=== PATIENT | female | born 1970 | race Caucasian/White ===

== ENCOUNTER 2020-12-08 09:49 | Emergency (ER) | payer BC ==
--- NOTE | 2020-12-08 10:05 | EDM.PDOC ---
"ED HPI GENERAL MEDICAL PROBLEM - General Chief Complaint: Abdominal Pain Stated Complaint: PAIN Time Seen by Provider: 12/08/20 10:05 Source of Information: Reports: Patient, RN, RN Notes Reviewed History Limitations: Reports: No Limitations - History of Present Illness INITIAL COMMENTS - FREE TEXT/NARRATIVE: Pt presents to ER from home by POV with c/o onset of right sided abdominal pain at 0100HRS this morning. Pt reports having sweats with chills, right flank pain, feeling abdominal distention, urinary frequency with one episode of urinary incontinence. Pt admits to chronic diarrhea for many years. Denies constipation. She states she had a negative COVID test at work this morning. Onset: Today, Gradual Onset Date: 12/08/20 Onset Time: 01:00 Duration: Constant Location: Reports: Abdomen - Related Data Allergies Allergy/AdvReac Type Severity Reaction Status Date / Time No Known Allergies Allergy Verified 12/08/20 10:35 Home Meds: Home Meds FLUoxetine [PROzac] 20 mg PO DAILY 11/30/15 [History] Meclizine [Antivert] 25 mg PO DAILY 11/30/15 [History] methocarbamoL [Methocarbamol] 500 - 1,000 mg PO Q8HR PRN 11/30/15 [History] DULoxetine HCl [Cymbalta] 60 mg PO DAILY 12/08/20 [History] Past Medical History Musculoskeletal History: Reports: Neck Pain, Chronic Endocrine/Metabolic History: Reports: Obesity/BMI 30+ Social & Family History - Family History Family Medical History: No Pertinent Family History - Living Situation & Occupation Living situation: Reports: with Family Occupation: Employed ED ROS GENERAL - Review of Systems Review Of Systems: Comprehensive ROS is negative, except as noted in HPI. ED EXAM, GI/ABD - Physical Exam Exam: See Below Exam Limited By: No Limitations General Appearance: Alert, WD/WN, Obese, Other (Uncomfortable but non-toxic appearing) Eyes: Bilateral: Normal Appearance Nose: Normal Inspection Throat/Mouth: Normal Inspection, Normal Voice, No Airway Compromise Head: Atraumatic, Normocephalic Neck: Normal Inspection Respiratory/Chest: No Respiratory Distress, Lungs Clear, Normal Breath Sounds, No Accessory Muscle Use, Chest Non-Tender Cardiovascular: Regular Rate, Rhythm GI/Abdominal Exam: Normal Bowel Sounds, Soft, Non-Tender, No Distention, Other (Obese abdomen, with tenderness not reproduced by palpation). No: Guarding, Rigid, Rebound Back Exam: Full Range of Motion, CVA Tenderness (R). No: CVA Tenderness (L), Vertebral Tenderness Neurological: Alert, Oriented, No Motor/Sensory Deficits Psychiatric: Normal Mood Skin Exam: Warm, Dry, Intact, Normal Color, No Rash Course - Vital Signs Last Recorded V/S: Last Vital Signs Temp 98.1 F 12/08/20 10:37 Pulse 74 12/08/20 10:37 Resp 20 12/08/20 10:37 BP 142/63 H 12/08/20 10:37 Pulse Ox 100 12/08/20 10:37 - Orders/Labs/Meds Orders: Active Orders 24 hr Category Date Time Status Peripheral IV Care [RC] . DIRECTED Care 12/08/20 10:10 Active CULTURE BLOOD [BC] Stat Lab 12/08/20 10:30 Received CULTURE BLOOD [BC] Stat Lab 12/08/20 10:32 Received Sodium Chloride 0.9% [Saline Flush] Med 12/08/20 10:09 Active 10 ml FLUSH ASDIRECTED PRN Blood Culture x2 Reflex Set [OM.PC] Stat Oth 12/08/20 10:11 Ordered Peripheral IV Insertion Adult [OM.PC] Stat Oth 12/08/20 10:10 Ordered Medication Orders Sodium Chloride (Saline Flush) 10 ml FLUSH ASDIRECTED PRN PRN Reason: Keep Vein Open Last Admin: 12/08/20 10:45 Dose: 10 ml Documented by: [email or web address] Labs: Laboratory Tests 12/08/20 12/08/20 12/08/20 Range/Units 10:00 10:30 10:30 WBC 9.0 (5.0-10.0) 10^3/uL RBC 4.58 (4.2-5.4) 10^6/uL Hgb 13.7 (12.0-16.0) g/dL Hct 41.8 (37.0-47.0) % MCV 91.3 (80-100) fL MCH 29.9 (27.0-34.0) pg MCHC 32.8 L (33.0-35.0) g/dL Plt Count 246 (150-450) 10^3/uL Neut % (Auto) 73.3 (42.2-75.2) % Lymph % (Auto) 19.3 L (20.5-50.1) % [place] % (Auto) 6.1 (2-8) % Eos % (Auto) 0.7 L (1.0-3.0) % Baso % (Auto) 0.6 (0.0-1.0) % Sodium 141 (136-145) mmol/L Potassium 4.0 (3.5-5.1) mmol/L Chloride 104 (98-107) mmol/L Carbon Dioxide 28 (21-32) mmol/L Anion Gap 13.0 (7-13) mEq/L BUN 15 (7-18) mg/dL Creatinine 0.83 (0.55-1.02) mg/dL Est Cr Clr Drug Dosing 76.75 mL/min Estimated GFR (MDRD) > 60 BUN/Creatinine Ratio 18.1 (No establ ref range) Glucose 150 H (74-99) mg/dL Lactic Acid (0.4-2.0) mmol/L Calcium 9.3 (8.5-10.1) mg/dL Total Bilirubin 0.3 (0.2-1.0) mg/dL AST 16 (15-37) U/L ALT 32 (14-59) U/L Alkaline Phosphatase 106 (46-116) U/L Total Protein 7.6 (6.4-8.2) g/dL Albumin 4.0 (3.4-5.0) g/dL Globulin 3.6 Albumin/Globulin Ratio 1.1 Amylase 34 (25-115) U/L Lipase 65 L (73-393) U/L Urine Color Yellow (YELLOW) Urine Appearance Slightly cloudy (CLEAR) Urine pH 5.0 (5.0-9.0) Ur Specific [place] >= 1.030 (1.005-1.030) Urine Protein Trace H (NEGATIVE) Urine Glucose (UA) Negative (NEGATIVE) Urine Ketones 15 H (NEGATIVE) Urine Occult Blood Moderate H (NEGATIVE) Urine Nitrite Negative (NEGATIVE) Urine Bilirubin Negative (NEGATIVE) Urine Urobilinogen 0.2 (0.2-1.0) mg/dL Ur Leukocyte Esterase Negative (NEGATIVE) Urine RBC 5-10 H /HPF Urine WBC 5-10 H (0-5/HPF) /HPF Ur Epithelial Cells Many H (NOT SEEN) /HPF Urine Bacteria Many H (0-FEW/HPF) /HPF 12/08/20 Range/Units 10:30 WBC (5.0-10.0) 10^3/uL RBC (4.2-5.4) 10^6/uL Hgb (12.0-16.0) g/dL Hct (37.0-47.0) % MCV (80-100) fL MCH (27.0-34.0) pg MCHC (33.0-35.0) g/dL Plt Count (150-450) 10^3/uL Neut % (Auto) (42.2-75.2) % Lymph % (Auto) (20.5-50.1) % [place] % (Auto) (2-8) % Eos % (Auto) (1.0-3.0) % Baso % (Auto) (0.0-1.0) % Sodium (136-145) mmol/L Potassium (3.5-5.1) mmol/L Chloride (98-107) mmol/L Carbon Dioxide (21-32) mmol/L Anion Gap (7-13) mEq/L BUN (7-18) mg/dL Creatinine (0.55-1.02) mg/dL Est Cr Clr Drug Dosing mL/min Estimated GFR (MDRD) BUN/Creatinine Ratio (No establ ref range) Glucose (74-99) mg/dL Lactic Acid 1.3 (0.4-2.0) mmol/L Calcium (8.5-10.1) mg/dL Total Bilirubin (0.2-1.0) mg/dL AST (15-37) U/L ALT (14-59) U/L Alkaline Phosphatase (46-116) U/L Total Protein (6.4-8.2) g/dL Albumin (3.4-5.0) g/dL Globulin Albumin/Globulin Ratio Amylase (25-115) U/L Lipase (73-393) U/L Urine Color (YELLOW) Urine Appearance (CLEAR) Urine pH (5.0-9.0) Ur Specific [place] (1.005-1.030) Urine Protein (NEGATIVE) Urine Glucose (UA) (NEGATIVE) Urine Ketones (NEGATIVE) Urine Occult Blood (NEGATIVE) Urine Nitrite (NEGATIVE) Urine Bilirubin (NEGATIVE) Urine Urobilinogen (0.2-1.0) mg/dL Ur Leukocyte Esterase (NEGATIVE) Urine RBC /HPF Urine WBC (0-5/HPF) /HPF Ur Epithelial Cells (NOT SEEN) /HPF Urine Bacteria (0-FEW/HPF) /HPF Meds: Medications Generic Name Dose Route Start Last Admin Trade Name Ubaldo PRN Reason Stop Dose Admin Sodium Chloride 10 ml 12/08/20 10:09 12/08/20 10:45 Saline Flush FLUSH 10 ml ASDIRECTED PRN Administration Keep Vein Open Discontinued Medications Generic Name Dose Route Start Last Admin Trade Name Freq PRN Reason Stop Dose Admin Hydromorphone HCl 1 mg 12/08/20 10:12 12/08/20 10:48 Dilaudid IVPUSH 12/08/20 10:13 1 mg ONETIME ONE Administration Sodium Chloride 1,000 mls @ 999 mls/hr 12/08/20 10:11 12/08/20 10:45 Normal Saline IV 12/08/20 11:11 999 mls/hr .BOLUS ONE Administration Ketorolac Tromethamine 30 mg 12/08/20 11:11 12/08/20 11:18 Toradol IVPUSH 12/08/20 11:12 30 mg ONETIME ONE Administration Ondansetron HCl 4 mg 12/08/20 10:11 12/08/20 10:46 Zofran IV 12/08/20 10:12 4 mg ONETIME ONE Administration Phenazopyridine HCl 190 mg 12/08/20 12:26 Urinary Pain Relief PO 12/08/20 12:27 ONETIME ONE - Radiology Interpretation Free Text/Narrative:: [facility] Final Radiology Report Call: [phone] assistance Online chat: [email or web address] Name: OSMEL FRANCIS Age: 50Years F Date: 12/08/2020 SSN: -- : [id number] Study: CT ABDOMEN PELVIS WO CONT Requesting Physician: NANCY LANDAVERDE Images: [id number] Addl Studies: Provided Clinical History: Rt abdominal flank pain Contrast: Without Contrast Medium: Contrast Amount: Contrast Method: Page 1 of 2 PROCEDURE INFORMATION: Exam: CT Abdomen And Pelvis Without Contrast Exam date and time: 12/08/2020 11:31 AM Age: 50 years old Clinical indication: Abdominal pain; Flank; Right; Additional info: RT abdominal flank pain TECHNIQUE: Imaging protocol: Computed tomography of the abdomen and pelvis without contrast. Radiation optimization: All CT scans at this facility use at least one of these dose optimization techniques: automated exposure control; mA and/or kV adjustment per patient size (includes targeted exams where dose is matched to clinical indication); or iterative reconstruction. COMPARISON: No relevant prior studies available. FINDINGS: Lungs: There is a posterior right lower lobe well-demarcated smoothly marginated 1.4 x 1.3 cm pleural based lower lobe nodule that has small amount of central hypodensity and CT numbers of -4 HU with elevated peripheral CT number 25 HU. Liver: Hepatic sagittal length 13 cm. There is a diffuse decrease in hepatic parenchymal density, consistent with moderate fatty infiltration. Gallbladder and bile ducts: There has been a cholecystectomy. No dilated ducts. Pancreas: Normal. No ductal dilation. Spleen: Normal. No splenomegaly. Adrenal glands: Normal. No mass. Kidneys and ureters: There is right hydronephrosis and hydroureter without right renal or ureteral calculi. There is however a dense dependent midline bladder calculus maximally measuring 10 mm x 8 mm. There is a 4 mm nonobstructing left upper pole left nephrolith. No left hydronephrosis. Stomach and bowel: Unremarkable. No obstruction. No mucosal thickening. Mild diverticulosis. No diverticulitis. OSMEL FRANCIS | Final Radiology Report CONFIDENTIALITY STATEMENT This report is intended only for use by the referring physician, and only in accordance with law. If you received this in error, call [phone]. Page 2 of 2 Appendix: No evidence of appendicitis. Intraperitoneal space: Unremarkable. No free air. No significant fluid collection. Vasculature: Unremarkable. No abdominal aortic aneurysm. Lymph nodes: Unremarkable. No enlarged lymph nodes. Urinary bladder: No bladder wall thickening. 10 mm dense midline dependent bladder calculus. Reproductive: Hysterectomy. Bones/joints: Mild L5-S1 degenerative disc disease with vacuum disc changes. No acute fracture. Soft tissues: Unremarkable. IMPRESSION: 1. Right moderate hydronephrosis and hydroureter secondary to dependent 10 mm bladder calculus. No visualized right renal or ureteral calculi. 2. Nonobstructing left upper pole renal nephroliths. 3. Hepatic steatosis. 4. Right lower pole 1.4 cm well-demarcated lung nodule may contain small amount of fat as seen with a pulmonary hematoma. Recommend scheduled high-resolution CT chest to further characterize lung nodule or additional pulmonary nodules. 5. Chronic findings include cholecystectomy, hysterectomy, L5-S1 mild degenerative disease and mild diverticulosis. Thank you for allowing us to participate in the care of your patient. Dictated and Authenticated by: Katie Stone MD 12/08/2020 12:05 PM Central Time ([place] & [place]) - Re-Assessments/Exams Free Text/Narrative Re-Assessment/Exam: 12/08/20 12:37 I consulted urology, Dr. Talley via [facility]. Dr. Talley advises Vesicare and Pyridium, and will see the pt in clinic. Departure - Departure Time of Disposition: 12:38 Disposition: Home, Self-Care 01 Condition: Good Clinical Impression: Right kidney stone, Bladder stone - Discharge Information *PRESCRIPTION DRUG MONITORING PROGRAM REVIEWED*: No *COPY OF PRESCRIPTION DRUG MONITORING REPORT IN PATIENT OFELIA: No Instructions: Renal Colic, Kidney Stones Forms: ED Department Discharge Additional Instructions: Rx: Hydrocodone APAP 5mg/325mg Rx: Zofran 4mg Rx: Pyridium 200mg Rx: Solifenacin 10mg Follow up with Dr. Talley at [facility]. Call [phone] today to schedule an appointment. Return to ER if your pain is uncontrolled or if you develop a fever. Sepsis Event Note (ED) - Focused Exam Vital Signs: Vital Signs Temp Pulse Resp BP Pulse Ox 12/08/20 10:37 98.1 F 74 20 142/63 H 100 - My Orders Last 24 Hours: My Active Orders 12/08/20 10:09 Sodium Chloride 0.9% [Saline Flush] 10 ml FLUSH ASDIRECTED PRN 12/08/20 10:10 Peripheral IV Care [RC] . DIRECTED Peripheral IV Insertion Adult [OM.PC] Stat 12/08/20 10:11 Blood Culture x2 Reflex Set [OM.PC] Stat 12/08/20 10:30 CULTURE BLOOD [BC] Stat 12/08/20 10:32 CULTURE BLOOD [BC] Stat - Assessment/Plan Last 24 Hours: My Active Orders 12/08/20 10:09 Sodium Chloride 0.9% [Saline Flush] 10 ml FLUSH ASDIRECTED PRN 12/08/20 10:10 Peripheral IV Care [RC] . DIRECTED Peripheral IV Insertion Adult [OM.PC] Stat 12/08/20 10:11 Blood Culture x2 Reflex Set [OM.PC] Stat 12/08/20 10:30 CULTURE BLOOD [BC] Stat 12/08/20 10:32 CULTURE BLOOD [BC] Stat"
[2020-12-08] MEDS ORDERED: Sodium Chloride 0.9% 10 ML Syringe FLUSH PRN (10:09)
[2020-12-08] MEDS ORDERED: Sodium Chloride 0.9% 1,000 ML IV ONE (10:11)
[2020-12-08] MEDS ORDERED: Ondansetron 4 MG/2 ML SDV IV ONE (10:11)
[2020-12-08] MEDS ORDERED: HYDROmorphone 1 MG/ML Syringe IVPUSH ONE (10:12)
[2020-12-08] MEDS ORDERED: Ketorolac 30 MG/ML SDV IVPUSH ONE (11:11)
[2020-12-08 11:45] LABS: CHLORIDE,CL 104 mmol/L (98-107); SODIUM,NA 141 mmol/L (136-145)
--- NOTE | 2020-12-08 12:05 | CT ---
PROCEDURE INFORMATION: Exam: CT Abdomen And Pelvis Without Contrast Exam date and time: 12/08/2020 11:31 AM Age: 50 years old Clinical indication: Abdominal pain; Flank; Right; Additional info: RT abdominal flank pain TECHNIQUE: Imaging protocol: Computed tomography of the abdomen and pelvis without contrast. Radiation optimization: All CT scans at this facility use at least one of these dose optimization techniques: automated exposure control; mA and/or kV adjustment per patient size (includes targeted exams where dose is matched to clinical indication); or iterative reconstruction. COMPARISON: No relevant prior studies available. FINDINGS: Lungs: There is a posterior right lower lobe well-demarcated smoothly marginated 1.4 x 1.3 cm pleural based lower lobe nodule that has small amount of central hypodensity and CT numbers of -4 HU with elevated peripheral CT number 25 HU. Liver: Hepatic sagittal length 13 cm. There is a diffuse decrease in hepatic parenchymal density, consistent with moderate fatty infiltration. Gallbladder and bile ducts: There has been a cholecystectomy. No dilated ducts. Pancreas: Normal. No ductal dilation. Spleen: Normal. No splenomegaly. Adrenal glands: Normal. No mass. Kidneys and ureters: There is right hydronephrosis and hydroureter without right renal or ureteral calculi. There is however a dense dependent midline bladder calculus maximally measuring 10 mm x 8 mm. There is a 4 mm nonobstructing left upper pole left nephrolith. No left hydronephrosis. Stomach and bowel: Unremarkable. No obstruction. No mucosal thickening. Mild diverticulosis. No diverticulitis. Appendix: No evidence of appendicitis. Intraperitoneal space: Unremarkable. No free air. No significant fluid collection. Vasculature: Unremarkable. No abdominal aortic aneurysm. Lymph nodes: Unremarkable. No enlarged lymph nodes. Urinary bladder: No bladder wall thickening. 10 mm dense midline dependent bladder calculus. Reproductive: Hysterectomy. Bones/joints: Mild L5-S1 degenerative disc disease with vacuum disc changes. No acute fracture. Soft tissues: Unremarkable. IMPRESSION: 1. Right moderate hydronephrosis and hydroureter secondary to dependent 10 mm bladder calculus. No visualized right renal or ureteral calculi. 2. Nonobstructing left upper pole renal nephroliths. 3. Hepatic steatosis. 4. Right lower pole 1.4 cm well-demarcated lung nodule may contain small amount of fat as seen with a pulmonary hematoma. Recommend scheduled high-resolution CT chest to further characterize lung nodule or additional pulmonary nodules. 5. Chronic findings include cholecystectomy, hysterectomy, L5-S1 mild degenerative disease and mild diverticulosis.
[2020-12-08] MEDS ORDERED: Phenazopyridine 95 MG Tab PO ONE (12:26)
== END 2020-12-08 13:00 | disposition home or self-care (01) ==
LOC: DL.ED 09:49
DX: N13.2 Hydronephrosis with renal and ureteral calculous obstruction (principal); N21.0 Calculus in bladder; E66.9 Obesity, unspecified; Z68.38 Body mass index [BMI] 38.0-38.9, adult; Z79.899 Other long term (current) drug therapy
CPT/HCPCS: 36415; 74176; 80053; 81001; 82150; 83605; 83690; 85025; 87040; 96374; 96375; 99284; A9270; J1170; J1885; J2405; J7030

== ENCOUNTER 2021-04-09 21:50 | Emergency (ER) | payer BC ==
[2021-04-09 23:10] LABS: ANION GAP 15.5 mEq/L (7-13)
--- NOTE | 2021-04-10 01:52 | CT ---
PROCEDURE INFORMATION: Exam: CT Abdomen And Pelvis Without Contrast Exam date and time: 04/10/2021 12:22 AM Age: 50 years old Clinical indication: Other: Right sided pain; Patient HX: Recent right renal calculi; Additional info: Upper abdominal pain , right flank TECHNIQUE: Imaging protocol: Computed tomography of the abdomen and pelvis without contrast. Radiation optimization: All CT scans at this facility use at least one of these dose optimization techniques: automated exposure control; mA and/or kV adjustment per patient size (includes targeted exams where dose is matched to clinical indication); or iterative reconstruction. COMPARISON: CT Abdomen Pelvis wo Cont 12/08/2020 11:31 AM FINDINGS: Lungs: 16 mm noncalcified nodule in the right lung base stable in size since the prior study dated 12/08/2020. Liver: Normal. No mass. Gallbladder and bile ducts: Status post cholecystectomy. No ductal dilation. Pancreas: Normal. No ductal dilation. Spleen: Normal. No splenomegaly. Adrenal glands: Normal. No mass. Kidneys and ureters: 3 mm nonobstructing stone upper pole left kidney No evidence for right-sided renal or ureteral calculi. Stomach and bowel: Unremarkable. No obstruction. No mucosal thickening. Appendix: Normal appendix right lower quadrant. Intraperitoneal space: Unremarkable. No free air. No significant fluid collection. Vasculature: Unremarkable. No abdominal aortic aneurysm. Lymph nodes: Unremarkable. No enlarged lymph nodes. Urinary bladder: Unremarkable as visualized. Reproductive: Unremarkable as visualized. Bones/joints: Unremarkable. No acute fracture. Soft tissues: Unremarkable. IMPRESSION: 1. 16 mm noncalcified nodule in the right lung base stable in size since the prior study dated 12/08/2020. 2. 3 mm nonobstructing stone upper pole left kidney 3. No evidence for right-sided renal or ureteral calculi. 4. Normal appendix right lower quadrant. COMMENTS: As per Fleischner Society guidelines for follow-up and management of pulmonary nodules: Recommend initial follow-up chest CT at 3, 9 and 24 months. Consider contrast enhanced chest CT, PET scan and/or biopsy as clinically warranted.
--- NOTE | 2021-04-10 02:08 | EDM.PDOC ---
ED HPI GENERAL MEDICAL PROBLEM - General Chief Complaint: Abdominal Pain Stated Complaint: PAIN ALL OVER BODY Time Seen by Provider: 04/09/21 23:10 Source of Information: Reports: Patient, RN History Limitations: Reports: No Limitations - History of Present Illness INITIAL COMMENTS - FREE TEXT/NARRATIVE: ED with c/o URQ pain radiating to back similar to prior kidney stone. Joelle present x 10 days. Unsure if new stone or stone moved or if something else, . Has only take 2 of hydrocodone, States they give her headaches. Pain intermittent, more if after eating or sitting up. No feve/ chills. No nausea or vomiting. Scheduled for CT on 04/13. No pain with voiding. Admits possible strain from punching bag onlast week. Today pain worse after vacuuming. Treatments [employer]: Reports: Other Medication(s) Right Upper Abdomen Pain Score (Numeric/FACES): 6 - Related Data Allergies Allergy/AdvReac Type Severity Reaction Status Date / Time No Known Allergies Allergy Verified 04/09/21 22:38 Home Meds: Home Meds FLUoxetine [PROzac] 20 mg PO DAILY 11/30/15 [History] Meclizine [Antivert] 25 mg PO DAILY 11/30/15 [History] methocarbamoL [Methocarbamol] 500 - 1,000 mg PO Q8HR PRN 11/30/15 [History] DULoxetine HCl [Cymbalta] 60 mg PO DAILY 12/08/20 [History] Hydroco/Apap 04/09/21 [History] buPROPion HCL [Bupropion Xl] 04/09/21 [History] Past Medical History Genitourinary History: Reports: Hydronephrosis Musculoskeletal History: Reports: Neck Pain, Chronic Psychiatric History: Reports: Depression Endocrine/Metabolic History: Reports: Obesity/BMI 30+ - Past Surgical History GI Surgical History: Reports: Cholecystectomy Female Surgical History: Reports: Ureteral Stent Other Female Surgeries/Procedures: patient states only had stent for couple days. Social & Family History - Family History Family Medical History: No Pertinent Family History - Tobacco Use Tobacco Use Status *Q: Former Tobacco User Used Tobacco, but Quit: Yes Month/Year Tobacco Last Used: 11/2004 - Caffeine Use Caffeine Use: Reports: Coffee - Recreational Drug Use Recreational Drug Use: Yes Drug Use in Last 12 Months: No - Living Situation & Occupation Living situation: Reports: with Family Occupation: Employed ED ROS GENERAL - Review of Systems Review Of Systems: Comprehensive ROS is negative, except as noted in HPI. ED EXAM, GI/ABD - Physical Exam Exam: See Below Exam Limited By: No Limitations General Appearance: Alert, No Apparent Distress, Obese Eyes: Right: EOMI Ears: Normal External Exam Nose: Normal Inspection Throat/Mouth: Normal Inspection Head: Atraumatic, Normocephalic Neck: Normal Inspection Respiratory/Chest: No Respiratory Distress, Lungs Clear, Normal Breath Sounds Cardiovascular: Normal Peripheral Pulses, Regular Rate, Rhythm GI/Abdominal Exam: Soft, Tender (deep palpation epigastric and mid right upper), Abnormal Bowel Sounds (hyperactive). No: Distended Extremities: Normal Inspection, Normal Range of Motion Neurological: Alert, Oriented, Normal Cognition Course - Vital Signs Last Recorded V/S: Last Vital Signs Temp 98.1 F 04/09/21 22:32 Pulse 95 04/09/21 22:32 Resp 17 04/09/21 22:32 BP 135/61 04/09/21 22:32 Pulse Ox 100 04/09/21 22:32 - Orders/Labs/Meds Orders: Active Orders 24 hr Category Date Time Status Abdomen wo Cont [MR] Urgent Exams 04/10/21 00:00 Stop Req Labs: Laboratory Tests 04/09/21 04/09/21 04/09/21 Range/Units 22:01 22:29 22:29 WBC 8.7 (5.0-10.0) 10^3/uL RBC 4.85 (4.2-5.4) 10^6/uL Hgb 14.2 (12.0-16.0) g/dL Hct 43.2 (37.0-47.0) % MCV 89.1 (80-100) fL MCH 29.3 (27.0-34.0) pg MCHC 32.9 L (33.0-35.0) g/dL Plt Count 267 (150-450) 10^3/uL Neut % (Auto) 50.1 (42.2-75.2) % Lymph % (Auto) 38.8 (20.5-50.1) % [place] % (Auto) 9.1 H (2-8) % Eos % (Auto) 1.5 (1.0-3.0) % Baso % (Auto) 0.5 (0.0-1.0) % Sodium 141 (136-145) mmol/L Potassium 3.5 (3.5-5.1) mmol/L Chloride 104 (98-107) mmol/L Carbon Dioxide 25 (21-32) mmol/L Anion Gap 15.5 H (7-13) mEq/L BUN 19 H (7-18) mg/dL Creatinine 1.02 (0.55-1.02) mg/dL Est Cr Clr Drug Dosing 52.77 mL/min Estimated GFR (MDRD) 58 BUN/Creatinine Ratio 18.6 (No establ ref range) Glucose 115 H (70-99) mg/dL Lactic Acid (0.4-2.0) mmol/L Calcium 9.0 (8.5-10.1) mg/dL Total Bilirubin 0.3 (0.2-1.0) mg/dL AST 13 L (15-37) U/L ALT 27 (14-59) U/L Alkaline Phosphatase 112 (46-116) U/L C-Reactive Protein 1.3 H (0.0-0.9) mg/dL Total Protein 7.3 (6.4-8.2) g/dL Albumin 3.6 (3.4-5.0) g/dL Globulin 3.7 Albumin/Globulin Ratio 1.0 Amylase 34 (25-115) U/L Lipase 68 L (73-393) U/L Urine Color Yellow (YELLOW) Urine Appearance Slightly cloudy (CLEAR) Urine pH 5.0 (5.0-9.0) Ur Specific [place] >= 1.030 (1.005-1.030) Urine Protein Negative (NEGATIVE) Urine Glucose (UA) Negative (NEGATIVE) Urine Ketones Negative (NEGATIVE) Urine Occult Blood Negative (NEGATIVE) Urine Nitrite Negative (NEGATIVE) Urine Bilirubin Negative (NEGATIVE) Urine Urobilinogen 0.2 (0.2-1.0) mg/dL Ur Leukocyte Esterase Negative (NEGATIVE) 04/09/21 Range/Units 22:29 WBC (5.0-10.0) 10^3/uL RBC (4.2-5.4) 10^6/uL Hgb (12.0-16.0) g/dL Hct (37.0-47.0) % MCV (80-100) fL MCH (27.0-34.0) pg MCHC (33.0-35.0) g/dL Plt Count (150-450) 10^3/uL Neut % (Auto) (42.2-75.2) % Lymph % (Auto) (20.5-50.1) % [place] % (Auto) (2-8) % Eos % (Auto) (1.0-3.0) % Baso % (Auto) (0.0-1.0) % Sodium (136-145) mmol/L Potassium (3.5-5.1) mmol/L Chloride (98-107) mmol/L Carbon Dioxide (21-32) mmol/L Anion Gap (7-13) mEq/L BUN (7-18) mg/dL Creatinine (0.55-1.02) mg/dL Est Cr Clr Drug Dosing mL/min Estimated GFR (MDRD) BUN/Creatinine Ratio (No establ ref range) Glucose (70-99) mg/dL Lactic Acid 1.0 (0.4-2.0) mmol/L Calcium (8.5-10.1) mg/dL Total Bilirubin (0.2-1.0) mg/dL AST (15-37) U/L ALT (14-59) U/L Alkaline Phosphatase (46-116) U/L C-Reactive Protein (0.0-0.9) mg/dL Total Protein (6.4-8.2) g/dL Albumin (3.4-5.0) g/dL Globulin Albumin/Globulin Ratio Amylase (25-115) U/L Lipase (73-393) U/L Urine Color (YELLOW) Urine Appearance (CLEAR) Urine pH (5.0-9.0) Ur Specific [place] (1.005-1.030) Urine Protein (NEGATIVE) Urine Glucose (UA) (NEGATIVE) Urine Ketones (NEGATIVE) Urine Occult Blood (NEGATIVE) Urine Nitrite (NEGATIVE) Urine Bilirubin (NEGATIVE) Urine Urobilinogen (0.2-1.0) mg/dL Ur Leukocyte Esterase (NEGATIVE) Departure - Departure Time of Disposition: 02:05 Disposition: Home, Self-Care 01 Condition: Good Clinical Impression: Right upper quadrant abdominal pain - Discharge Information *PRESCRIPTION DRUG MONITORING PROGRAM REVIEWED*: No *COPY OF PRESCRIPTION DRUG MONITORING REPORT IN PATIENT OFELIA: No Instructions: Abdominal Pain, Adult, [id number] Forms: ED Department Discharge Additional Instructions: clinic follow up with primary care this week increase fruit fiber in diet miralax one capful daily home medications as prescribed Sepsis Event Note (ED) - Evaluation Sepsis Screening Result: No Definite Risk - Focused Exam Vital Signs: Vital Signs Temp Pulse Resp BP Pulse Ox 04/09/21 22:32 98.1 F 95 17 135/61 100 - My Orders Last 24 Hours: My Active Orders 04/10/21 00:00 Abdomen wo Cont [MR] Urgent - Assessment/Plan Last 24 Hours: My Active Orders 04/10/21 00:00 Abdomen wo Cont [MR] Urgent
== END 2021-04-10 02:31 | disposition home or self-care (01) ==
LOC: DL.ED 21:50
DX: R10.11 Right upper quadrant pain (principal); E66.9 Obesity, unspecified; Z68.41 Body mass index [BMI] 40.0-44.9, adult; Z87.891 Personal history of nicotine dependence; Z79.899 Other long term (current) drug therapy
CPT/HCPCS: 36415; 74176; 80053; 81003; 82150; 83605; 83690; 85025; 86140; 99282; 99284-25

== ENCOUNTER 2021-09-26 20:22 | Emergency (ER) | payer BC ==
[2021-09-26 21:25] LABS: ANION GAP 13.8 mEq/L (7-13); CHLORIDE,CL 105 mmol/L (98-107); SODIUM,NA 141 mmol/L (136-145)
[2021-09-26 21:39] LABS: CORONAVIRUS COVID-19 NAA NEGATIVE (NEGATIVE)
--- NOTE | 2021-09-26 21:47 | CT ---
PROCEDURE INFORMATION: Exam: CT Head Without Contrast Exam date and time: 09/26/2021 9:25 PM Age: 51 years old Clinical indication: Other: Headache distractability TECHNIQUE: Imaging protocol: Computed tomography of the head without contrast. Radiation optimization: All CT scans at this facility use at least one of these dose optimization techniques: automated exposure control; mA and/or kV adjustment per patient size (includes targeted exams where dose is matched to clinical indication); or iterative reconstruction. COMPARISON: No relevant prior studies available. FINDINGS: Brain: No acute hemorrhage. Unremarkable white matter. No mass effect. Cerebral ventricles: No ventriculomegaly. Paranasal sinuses: Visualized sinuses are unremarkable. No fluid levels. Mastoid air cells: Visualized mastoid air cells are well aerated. Bones/joints: No acute fracture. Soft tissues: Unremarkable. IMPRESSION: No acute intracranial abnormality.
--- NOTE | 2021-09-26 21:49 | CR ---
PROCEDURE INFORMATION: Exam: XR Chest Exam date and time: 09/26/2021 9:21 PM Age: 51 years old Clinical indication: Other: SOB TECHNIQUE: Imaging protocol: XR of the chest. Views: 2 views. COMPARISON: Report only (no images) from CT abdomen pelvis 04/10/2021. FINDINGS: Lungs: 19 mm nodule in the right lung base; the prior CT report described a 16 mm nodule in the right lung base. The lungs are otherwise clear bilaterally. Pleural spaces: Unremarkable. No pleural effusion. No pneumothorax. Heart/Mediastinum: Unremarkable. No cardiomegaly. Bones/joints: No evidence of acute osseous abnormality. IMPRESSION: 1. There is a 19 mm nodule in the right lung base; the prior CT report described a 16 mm nodule in the right lung base. The lungs are otherwise clear bilaterally. 2. No radiographically apparent acute abnormality in the chest.
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
== END 2021-09-26 22:15 | disposition home or self-care (01) ==
LOC: DL.ED 20:22
DX: F41.9 Anxiety disorder, unspecified (principal); R51.9 Headache, unspecified; E66.9 Obesity, unspecified; Z79.82 Long term (current) use of aspirin; Z68.41 Body mass index [BMI] 40.0-44.9, adult; Z20.822 Contact with and (suspected) exposure to COVID-19; Z87.891 Personal history of nicotine dependence
CPT/HCPCS: 0240U; 36415; 70450; 71046; 80053; 81003; 84443; 84484; 85025; 93005; 99284

== ENCOUNTER 2022-12-18 20:50 | Emergency (ER) | payer BC ==
[2022-12-18 21:37] LABS: ANION GAP 14.5 mEq/L (7-13)
[2022-12-18] MEDS ORDERED: LORazepam 0.5 MG Tab PO ONE (21:50)
== END 2022-12-18 22:18 | disposition home or self-care (01) ==
LOC: DL.ED 20:50
DX: F41.9 Anxiety disorder, unspecified (principal); E66.9 Obesity, unspecified; Z68.41 Body mass index [BMI] 40.0-44.9, adult; Z91.048 Other nonmedicinal substance allergy status; Z91.040 Latex allergy status
CPT/HCPCS: 36415; 71045; 80053; 81003; 83605; 84484; 85025; 87040; 93005; 99285; A9270; 93010; 99284

== ENCOUNTER 2023-04-06 02:10 | Emergency (ER) | payer BC ==
[2023-04-06] MEDS ORDERED: Ketorolac 30 MG/ML SDV IVPUSH ONE (03:11)
[2023-04-06] MEDS ORDERED: cefTRIAXone 1 GM Vial IVPUSH ONE (03:11)
[2023-04-06] MEDS ORDERED: Clindamycin in 0.9 % Sod Chlor 900 MG in Premix Bag 1 BAG IV ONE ×2 (03:15)
[2023-04-06 03:38] LABS: BASOPHILS PERCENT AUTO 0.4 % (0.0-1.0); HEMOGLOBIN 13.8 g/dL (12.0-16.0); LYMPHOCYTES PERCENT AUTO 30.8 % (20.5-50.1); MEAN CORPUSCULAR HEMOGLOBIN 29.3 pg (27.0-34.0); MEAN CORPUSCULAR HGB CONC 32.9 g/dL (33.0-35.0); MEAN CORPUSCULAR VOLUME 89.2 fL (80-100); MONOCYTES PERCENT AUTO 9.5 % (2-8); NEUTROPHILS PERCENT AUTO 58.3 % (42.2-75.2); PLATELET COUNT,PLT 255 10^3/uL (150-450); RED BLOOD CELL COUNT 4.71 10^6/uL (4.2-5.4)
== END 2023-04-06 05:06 | disposition home or self-care (01) ==
LOC: DL.ED 02:10
DX: S91.151A Open bite of right great toe without damage to nail, initial encounter (principal); L03.031 Cellulitis of right toe; E66.9 Obesity, unspecified; Z68.41 Body mass index [BMI] 40.0-44.9, adult; Z87.891 Personal history of nicotine dependence; Z79.82 Long term (current) use of aspirin; W55.01XA Bitten by cat, initial encounter
CPT/HCPCS: 36415; 85025; 96365; 96375; 99282; 99283-25; J0696; J1885; J3490

== ENCOUNTER 2023-05-21 05:49 | Day surgery (SDC) | payer BC ==
[2023-05-21] MEDS ORDERED: Dextrose 5%-0.45% NaCl 1,000 ML IV SCH (06:00)
[2023-05-21] MEDS ORDERED: Midazolam 1 MG/ML 2 ML SDV ONE (06:22)
[2023-05-21] MEDS ORDERED: fentaNYL 100 MCG/2 ML SDV IV ONE ×3 (06:22→06:54)
[2023-05-21] MEDS ORDERED: Midazolam 1 MG/ML 2 ML SDV IV ONE ×3 (06:22→06:55)
[2023-05-21] MEDS ORDERED: fentaNYL 100 MCG/2 ML SDV ONE (06:22)
== END 2023-05-21 08:45 | disposition home or self-care (01) ==
LOC: DL.ENDO 05:49
PROVIDERS: ATTEND Internal Medicine Gastroenterology
DX: K29.50 Unspecified chronic gastritis without bleeding (principal); K22.89 Other specified disease of esophagus; K21.9 Gastro-esophageal reflux disease without esophagitis; F41.1 Generalized anxiety disorder; E78.5 Hyperlipidemia, unspecified; E66.09 Other obesity due to excess calories; Z98.51 Tubal ligation status; Z68.41 Body mass index [BMI] 40.0-44.9, adult
CPT/HCPCS: 43239; 87077; J2250; J3010; J7042